=== PATIENT | female | born 1965 | race Caucasian/White ===

== ENCOUNTER 2021-06-15 08:51 | Emergency (ER) | payer OTHER ==
[2021-06-15 09:08] VITALS: BP 101/68; PULSE 91; TEMP 99.7; BMI 25.7
[2021-06-15] MEDS ORDERED: IBUPROFEN 400 MG TABLET (FP) PO ONE ×3 (09:10→09:17)
[2021-06-16 12:08] LABS: SARS-CoV-2 NAA Detected (Not Detected)
== END 2021-06-15 09:25 | disposition home or self-care (01) ==
LOC: FER 08:51
DX: U07.1 COVID-19 (principal); R05.1 Acute cough
CPT/HCPCS: 99283-25; C9803; U0003; U0005